=== PATIENT | female | born 1985 | race Two or more races ===

== ENCOUNTER 2021-04-10 00:45 | Observation (INO) | payer MEDICAID, OTHER ==
[~2021-04-10] VITALS: Ht 160 cm; Wt 63.0 kg
[2021-04-10] MEDS ORDERED: CEPH-322 PO ×2 (04:33→04:36)
[2021-04-10] MEDS ORDERED: PREN-96 PO (04:38)
== END 2021-04-10 04:48 | disposition home or self-care (01) ==
LOC: LDRP 00:45
PROVIDERS: ADMIT Obstetrics & Gynecology; ATTEND Obstetrics & Gynecology
DX: O62.9 Abnormality of forces of labor, unspecified (principal); Z3A.33 33 weeks gestation of pregnancy; Z79.899 Other long term (current) drug therapy; W18.2XXA Fall in (into) shower or empty bathtub, initial encounter; Y93.89 Activity, other specified; Y92.89 Other specified places as the place of occurrence of the external cause; Y99.8 Other external cause status
CPT/HCPCS: 59025; 76805; 76818; 81002; 82962; G0378

== ENCOUNTER 2021-05-21 07:05 | Inpatient (IN) | payer MEDICAID ==
[~2021-05-21] VITALS: Ht 160 cm; Wt 71.7 kg
[~2021-05-21 07:05] MED LIST: CEPH-322 PO; PREN-96 PO
[2021-05-21] MEDS ORDERED: BUTORPHANOL TARTRATE 2 MG/1 ML VIAL IV PRN ×2 (07:45)
[2021-05-21] MEDS ORDERED: WITCH HAZEL-GLYCERIN PAD TOP PRN (07:45)
[2021-05-21] MEDS ORDERED: ONDANSETRON ODT 4 MG TAB PO PRN (07:45)
[2021-05-21] MEDS ORDERED: PROMETHAZINE HCL 25 MG/ML 1ML IV PRN (07:45)
[2021-05-21] MEDS ORDERED: ACETAMINOPHEN 325 MG TAB PO PRN (07:45)
[2021-05-21] MEDS ORDERED: PHISODERM TOP SOLN 240ML BTL TOP PRN (07:45)
[2021-05-21] MEDS ORDERED: CARBOPROST TROMETHAMINE 250 MCG/1ML VIAL IM ONE (07:45)
[2021-05-21] MEDS ORDERED: miSOPROStol 100 mcg TAB SL PRN (07:45)
[2021-05-21] MEDS ORDERED: miSOPROStol 100 mcg TAB PR PRN (07:45)
[2021-05-21] MEDS ORDERED: DERMOPLAST 60ML BOTTLE TOP PRN (07:45)
[2021-05-21] MEDS ORDERED: LACT. RINGERS/OXYTOCIN 20UNITS 500 ML IV ONE ×2 (07:45→09:45)
[2021-05-21] MEDS ORDERED: LACTATED RINGER'S 1,000 ML IV SCH (07:45)
[2021-05-21] MEDS ORDERED: METHYLERGONOVINE MALEATE 0.2 MG/ML AMP IM ONE (07:45)
[2021-05-21] MEDS ORDERED: PENICILLIN G POT 5MIL/D5 50ML 50 ML IV ONE (07:45)
[2021-05-21] MEDS ORDERED: PREN-96 PO (07:53)
[2021-05-21] MEDS ORDERED: LACT. RINGERS/OXYTOCIN 20UNITS 1,000 ML IV SCH (08:15)
[2021-05-21 08:29] LABS: Basophils # (auto) 0.1 10 ^3/uL (0-0.2); Basophils % (auto) 0.6 % (0.0-2.0); Eosinophils # (auto) 0 10 ^3/uL (0-0.8); Eosinophils % (auto) 0.4 % (0.0-7.0); Hematocrit 38.4 % (36.0-46.0); Hemoglobin 12.8 g/dL (12.2-16.2); Lymphocytes # (auto) 1.8 10 ^3/uL (0.4-5.4); Lymphocytes % (auto) 13.9 % (10.0-50.0); Mean Corpuscular Hemoglobin 27.4 pg (28.0-32.0); Mean Corpuscular Hgb Conc. 33.3 g/dL (32.0-36.0); Mean Corpuscular Volume 82.3 fL (80.0-100.0); Monocytes # (auto) 0.7 10 ^3/uL (0-1.3); Monocytes % (auto) 5.6 % (0.0-12.0); Neutrophils # (auto) 10.2 10 ^3/uL (1.6-8.6); Neutrophils % (auto) 79.5 % (37.0-80.0); Red Blood Cells 4.67 10^6/uL (4.0-5.20); Red Cell Distribution Width 15.2 % (11.8-14.3); White Blood Cell 12.9 10^3/uL (4.4-10.8)
[2021-05-21] MEDS ORDERED: LIDOCAINE 2%HCL (LOCAL ANESTH.) INJ 20ML MDV ONE (08:35)
[2021-05-21 08:42] LABS: Albumin 2.6 g/dL (3.4-5.0); Calcium 8.2 mg/dL (8.5-10.1); Potassium 4.1 mmol/L (3.5-5.1)
[2021-05-21 08:46] LABS: BUN/Creatinine Ratio 16.1; Bilirubin, Total 0.3 mg/dL (0.2-1.0); Total Protein 6.3 g/dL (6.4-8.2)
[2021-05-21] MEDS: LIDOCAINE 2%HCL (LOCAL ANESTH.) INJ 20ML MDV IJ PRN ×2 (08:46→08:48)
[2021-05-21 08:49] LABS: INR 0.88 (0.9-1.15); Partial Thromboplastin Time 26.6 sec (23.6-33.0)
[2021-05-21] MEDS ORDERED: LIDOCAINE 2%HCL (LOCAL ANESTH.) INJ 20ML MDV IJ PRN (09:15)
[2021-05-21 09:17] LABS: Urine Bacteria NONE SEEN /hpf (None Seen); Urine Blood 1+ /uL (Negative); Urine Specific Gravity 1.019 (1.001-1.035); Urine WBC 19 /hpf (0 - 5)
[2021-05-21 09:24] LABS: Alcohol, Urine < 3.0 mg/dL (0-10); Amphetamine Screen, Urine NEGATIVE (NEGATIVE); Barbiturate Scree,Urine NEGATIVE (NEGATIVE); Benzodiazephine Screen, Urine NEGATIVE (NEGATIVE); Cannabinoid Screen, Urine NEGATIVE (NEGATIVE); Cocaine Screen, Urine NEGATIVE (NEGATIVE); Opiate Scree,Urine NEGATIVE (NEGATIVE); Phencyclidine Screen, Urine NEGATIVE (NEGATIVE)
[2021-05-21] MEDS: IBUPROFEN 600 MG TAB PO PRN (09:38)
[2021-05-21] MEDS ORDERED: PENICILLIN G POTASSIUM 2,500,000 UNITS in D5W 5% 50 ML IV SCH (11:45)
[2021-05-21 11:47] VITALS: BP 108/63
[2021-05-21 15:00] VITALS: BP 110/63
[2021-05-21 19:00] VITALS: BP 101/58
[2021-05-21 23:00] VITALS: BP 98/56
[2021-05-22 03:00] VITALS: BP 120/72
[2021-05-22 07:00] VITALS: BP 114/75
[2021-05-22 07:06] LABS: RPR Non Reactive (Non Reactive)
[2021-05-22] MEDS: IBUPROFEN 600 MG TAB PO PRN (07:39)
[2021-05-22 10:30] VITALS: BP 108/64
== END 2021-05-22 11:00 | disposition home or self-care (01) | DRG 560 ==
LOC: LDRP 07:05 → OBSVTOIN 07:20 → LDRP 10:00
PROVIDERS: ADMIT Obstetrics & Gynecology; ATTEND Obstetrics & Gynecology
PROC: 10E0XZZ Delivery of Products of Conception, External Approach (ICD-10-PCS; principal; 2021-05-21)
PROC: 0KQM0ZZ Repair Perineum Muscle, Open Approach (ICD-10-PCS; 2021-05-21)
DX: O99.824 Streptococcus B carrier state complicating childbirth (principal); Z37.0 Single live birth; O42.90 Premature rupture of membranes, unspecified as to length of time between rupture and onset of labor, unspecified weeks of gestation; Z20.822 Contact with and (suspected) exposure to COVID-19; O70.1 Second degree perineal laceration during delivery; Z3A.39 39 weeks gestation of pregnancy
CPT/HCPCS: 36415; 59025; 59409; 80053; 80307; 81001; 85025; 85610; 85730; 86592; 86850; 86900; 86901; 87426; 94760; 96360; 96361; 96365; 96366; 96372; G0378; J2540; J2590; J7060

== ENCOUNTER 2023-11-27 23:54 | Emergency (ER) | payer MEDICAID, OTHER ==
[~2023-11-27] VITALS: Ht 157.5 cm; Wt 71.0 kg
[~2023-11-27 23:54] MED LIST changes: -CEPH-322 PO
[2023-11-28 00:12] VITALS: BP 123/91; PULSE 88; RESP 22; O2SAT 100
[2023-11-28 02:07] LABS: Urine Bacteria FEW /hpf (None Seen); Urine Blood 3+ /uL (Negative); Urine Clarity Clear (Clear); Urine Color Light-Yellow (Yellow); Urine Hyaline Cast FEW /lpf (0 - 2); Urine Mucus FEW (None Seen); Urine Protein, UAD TRACE (Negative); Urine Specific Gravity 1.024 (1.001-1.035); Urine Urobilinogen Normal (Negative); Urine WBC 5 /hpf (0 - 5)
== END 2023-11-28 02:40 | disposition left against medical advice (07) ==
LOC: ER 11-28
DX: M79.18 Myalgia, other site (principal); R51.9 Headache, unspecified; M79.602 Pain in left arm; M79.601 Pain in right arm; M54.2 Cervicalgia; Z53.21 Procedure and treatment not carried out due to patient leaving prior to being seen by health care provider
CPT/HCPCS: 81001

== ENCOUNTER 2025-01-05 03:33 | Inpatient (IN) | payer MEDICAID ==
[~2025-01-05] VITALS: Ht 152.4 cm; Wt 72.6 kg
[2025-01-05] MEDS: LACTATED RINGER'S 1,000 ML IV SCH (03:45)
[2025-01-05] MEDS: OXYTOCIN 10UNIT/ML 1ML VIAL ONE (03:46)
[2025-01-05] MEDS: LACT. RINGERS/OXYTOCIN 20UNITS 1,000 ML IV ONE (03:46)
[2025-01-05] MEDS: METHYLERGONOVINE MALEATE 0.2 MG/ML AMP IM ONE ×2 (03:46→04:00)
[2025-01-05] MEDS: CARBOPROST TROMETHAMINE 250 MCG/1ML VIAL IM ONE (04:00)
[2025-01-05] MEDS: LIDOCAINE 2%HCL (LOCAL ANESTH.) INJ 20ML MDV ONE (04:05)
[2025-01-05] MEDS: fentaNYL CITRATE 100 MCG/2 ML VL IV ONE (04:15)
[2025-01-05] MEDS ORDERED: ONDANSETRON ODT 4 MG TAB PO PRN (04:30)
[2025-01-05] MEDS ORDERED: LIDOCAINE 2%HCL (LOCAL ANESTH.) INJ 20ML MDV IJ PRN (04:30)
[2025-01-05] MEDS: WITCH HAZEL-GLYCERIN PAD TOP PRN (04:37)
[2025-01-05] MEDS: DERMOPLAST 60ML BOTTLE TOP PRN (04:37)
[2025-01-05] MEDS: PHISODERM TOP SOLN 240ML BTL TOP PRN (04:37)
[2025-01-05] MEDS: LACT. RINGERS/OXYTOCIN 20UNITS 500 ML IV ONE ×2 (04:38→04:39)
[2025-01-05] MEDS: IBUPROFEN 600 MG TAB PO PRN (04:50)
--- NOTE | 2025-01-05 05:00 | DVHHP2 ---
OB CC & HPI Date Date of Admission: Jan 05, 2025 Patient Identification: : 5 Para: 4 EDC: Jan 10, 2025 EGA: 39w2d Chief Complaints: Reason for admission: active labor History of Present Complaints Elma Villalobos is a 39 year old with IUP at 39w2d presenting to the place in active labor. Patient states her contractions started 2 hours ago and her water has not broken. Patient pushing spontaneously with contractions and stating that she "needs to push" Denies any complications with . No history of BP issues or asthma. Past Medical History Cardiac: No pertinent Hx Pulmonary: No pertinent Hx Central Nervous System: No pertinent Hx GI: No pertinent Hx Hemotology/Oncology: No pertinent Hx Hepatobiliary: No pertinent Hx Psychiatric: No pertinent Hx Musculoskeletal: No pertinent Hx Rheumotologic: No pertinent Hx Infectious Disease: No peritnent Hx ENT: No pertinent Hx Renal/: No pertinent Hx Endocrine: No pertinent Hx Dermatology: No pertinent Hx Past Surgical History: No pertinent Hx OB History OB History Care: Good Care (stopped going to visits at 37 weeks, but kept all other appointments) Ultrasounds: Normal mid trimester US (per patient) Obstetrical Complications: None Medical Complications: None Allergies: Coded Allergies: NO KNOWN ALLERGIES (Unverified , 04/10/21) Home Meds Reported Medications Vit W/ Ferrous Fumara ( One Daily) Daily Tab, 1 TAB PO DAILY, #90 TAB 3 Refills 05/21/21 Current Medications Current Medications Medications (Trade) Dose Ordered Sig/Swetha Route PRN Reason Start Time Stop Time Status Last Admin Lactated Ringer's 1,000 ml @ 125 mls/hr Q8H IV 01/05/25 03:45 Huma Godwin (Tucks) 1 pad PRN PRN TOP PERINEAL AREA DISCOMFORT 01/05/25 03:45 01/05/25 04:37 Sodium Lauryl Sulfate (Phisoderm) 240 ml PRN PRN TOP PERINEAL AREA DISCOMFORT 01/05/25 03:45 01/05/25 04:37 Benzocaine (Dermoplast) 1 applic PRN PRN TOP PERINEAL AREA DISCOMFORT 01/05/25 03:45 01/05/25 04:37 Ibuprofen (Motrin Tablet) 600 mg Q6HP PRN PO MODERATE PAIN (4-6 PAIN SCALE) 01/05/25 04:30 01/05/25 04:50 Acetaminophen (Tylenol Tablet) 650 mg Q4HP PRN PO MILD PAIN (1-3 PAIN SCALE) 01/05/25 04:30 Ondansetron HCl (Zofran Po) 4 mg Q4HPRN PRN PO NAUSEA / VOMITING 01/05/25 04:30 Docusate Sodium (Colace Capsule) 200 mg HS PO 01/05/25 22:00 Lidocaine HCl (Xylocaine) 20 ml ONCE PRN IJ PERINEAL AREA DISCOMFORT 01/05/25 04:30 Family & Social History Family/Social History Blood Type: O+ Rubella: immune RPR/VDRL: Negative GBS Status: Unknown HBsAG: Negative Review of Systems Constitutional: No symptom reported Ears, Nose, & Throat: No symptom reported Eyes: No symptom reported Pulmonary/Respiratory: No symptom reported Cardiovascular: No symptom reported Gastrointestinal: No symptom reported Genitourinary: No symptom reported Musculoskeletal: No symptom reported Skin: No symptom reported Psychiatric: No symptom reported Endocrine: No symptom reported Hemotologic/Lymphatic: No symptom reported OB Admission Exam Physical Exam Vitals: 0343: BP: 113/81 HR: 79 SpO2: 98 T: 97.7 RR: 19 Heart: Rhythm Normal Lungs: Clear Abdomen: Gravid Extremities: Normal Reflexes: Normal Cervical Dilatation: 8cm Membranes: Intact Heart Rate: 120's Accelerations: Accelerations Present Decelerations: Variable Decelerations Short Term Variability: Present Primary Special Educator Variability: Average (6-25) Contractions on Admission: < 5 Minutes Apart Date/Time Contractions Began: 01/05/25 @ 0130 Intensity: Firm OB Plan Plan Admitting Diagnosis: LABOR Plan: Expectant Management Other Plan: ASSESSMENT: -39 yo , IUP at 39w2d -Active labor -Category 1 Tracing -GBS unknown. Negative in all other pregnancies, per patient PLAN: -Plan of care discussed with Patient -Consent for possible blood transfusion obtained. -All questions and concerns answered. -Admit to Place for Labor and Delivery -Routine L&D Admission orders -EFM and vitals per policy. -Anticipate precipitous spontaneous vaginal delivery Visit Coding OBGYN Date of Service: Jan 05, 2025 Billing Provider: ALICE BRIGGS CNM [employer] Common Visit Codes: [id number] OBS CARE (HIGH) [employer] Procedure Codes: 00630-60- NON-STRESS TEST ALICE BRIGGS [facility] Jan 05, 2025 05:00
--- NOTE | 2025-01-05 05:04 | LDN2 ---
Labor and Delivery Note Date 01/05/25 Age 39 5 Para 4->5 EDC 01/10/2025 EGA 39w2d Diagnosis Vaginal Delivery: VTX Vacuum Assisted: No Placenta: Spontaneous (Franchesca) Sex: Male Amniotic Fluid: Clear Episiotomy: No Extension: Yes (2nd degree perineal laceration) Repaired with 3-[address]-1 EBL 50 in drape Labs Laboratory Tests 01/05/25 04:32: Blood Bank 05/21/21 08:01: Blood Type O POSITIVE Comments/Significant Med Tisha At 0352 this 39yo now delivered a viable male infant by w/ APGARS _/_. MARGARITA. placed skin to skin on pts abdomen r/t short cord length. Cord clamped and cut after 60 second. Cord blood sent. Intact 3-vessel cord and intact placenta (Franchesca), delivered spontaneously Pitocin IV bolus started. Placenta sent to pathology. Local lidocaine placed in vagina and perineum Cervix inspected and intact. Second degree perineal laceration present which was repaired with 3-0 vicryl suture in the usual fashion. Fundus at U, firm, midline, and light lochia. Straight catheter for 100 mL of clear urine. QBL 50mL in drape. VSS. Count correct x2. Patient to care and baby to couplet care, both stable. Visit Coding OBGYN Date of Service: Jan 05, 2025 Billing Provider: ALICE BRIGGS CNM [employer] Common Visit Codes: [id number] INP/OBS CARE (HIGH) [employer] Procedure Codes: 33397-[id number] DELIVERY ONLY ALICE BRIGGS CNM Jan 05, 2025 05:04
[2025-01-05 05:07] LABS: Hematocrit 40.5 % (36.0-46.0); Hemoglobin 13.8 g/dL (12.2-16.2); Mean Corpuscular Hemoglobin 28.6 pg (28.0-32.0); Mean Corpuscular Volume 83.9 fL (80.0-100.0); Nucleated Red Blood Cells % 0.0 %
[2025-01-05 05:15] LABS: Urine Protein, UAD Negative (Negative)
[2025-01-05 05:18] LABS: Amphetamine Screen, Urine Neg (NEGATIVE); Barbiturate Scree,Urine Neg (NEGATIVE); Benzodiazephine Screen, Urine Neg (NEGATIVE); Cannabinoid Screen, Urine Neg (NEGATIVE); Cocaine Screen, Urine Neg (NEGATIVE); Opiate Scree,Urine Neg (NEGATIVE); Phencyclidine Screen, Urine Neg (NEGATIVE)
[2025-01-05 05:19] LABS: Albumin 3.8 g/dL (3.2-4.8); Anion Gap 11 (5-15); BUN/Creatinine Ratio 7.8 (10.0-20.0); Carbon Dioxide 22 mmol/L (20-31); Chloride 105 mmol/L (98-107); Glucose 78 mg/dL (74-106); Potassium 4.0 mmol/L (3.5-5.1); Sodium 138 mmol/L (136-145); Total Protein 6.3 g/dL (5.7-8.2); Uric Acid 4.7 mg/dL (3.1-7.8)
[2025-01-05 05:20] LABS: Bilirubin, Total 0.4 mg/dL (0.2-1.0)
[2025-01-05 05:22] LABS: Alanine Aminotransferase < 9 U/L (7-40); Alkaline Phosphatase 167 U/L (46-116); Blood Urea Nitrogen 5 mg/dL (9-23); Calcium 8.6 mg/dL (8.7-10.4)
[2025-01-05 06:59] LABS: Fibrinogen 465.0 mg/dL (177-375); INR 0.89 (0.9-1.15); Partial Thromboplastin Time 27.4 SEC (24.5-34.5); Prothrombin Time 9.5 sec (9.3-11.8)
[2025-01-05 07:00] VITALS: BP 113/59; PULSE 75; RESP 16; TEMP 98.6; O2SAT 96
[2025-01-05 11:19] VITALS: BP 113/51; PULSE 60; RESP 17; TEMP 98; O2SAT 96
[2025-01-05] MEDS: ACETAMINOPHEN 325 MG TAB PO PRN (11:19)
[2025-01-05 15:02] VITALS: BP 122/66; PULSE 74; RESP 16; TEMP 97.8; O2SAT 95
[2025-01-05 18:30] VITALS: BP 104/61; PULSE 79; RESP 16; TEMP 98.4; O2SAT 99
[2025-01-05] MEDS: DOCUSATE SOD 100 MG CAP PO SCH (22:51)
[2025-01-05 23:00] VITALS: BP 136/74; PULSE 58; RESP 17; TEMP 98; O2SAT 99
[2025-01-05 23:01] VITALS: BP 136/74; PULSE 58; RESP 16; TEMP 98; O2SAT 99
[2025-01-06 03:30] VITALS: BP 127/75; PULSE 63; RESP 18; TEMP 98.2; O2SAT 99
--- NOTE | 2025-01-06 06:08 | DVHPN2 ---
Progress Note Date Seen: Jan 06, 2025 Subjective S: Lochia minimal Tolerating regular diet well. Ambulating and voiding well w/o feeling lightheaded or dizzy. Passing flatus but no BM yet. Breast feeding. Contraceptive plan: Desires and requests to be discharged home today vital signs Vital Sign Date Time Temp Pulse Resp B/P (MAP) Pulse Ox O2 Delivery O2 Flow Rate FiO2 01/06/25 03:30 98.2 63 18 127/75 (92) 99 98.2 01/05/25 18:30 Room Air Total Intake and Output 01/05/25 01/05/25 01/06/25 15:00 23:00 07:00 Output Total 1000 ml 500 ml Balance -1000 ml -500 ml medications Current Medications Medications Dose Ordered Sig/Swetha Route Start Time Stop Time Status Last Admin Dose Admin Lactated Ringer's 1,000 ml @ 125 mls/hr Q8H IV 01/05/25 03:45 Witch Citlali 1 pad PRN PRN TOP 01/05/25 03:45 01/05/25 04:37 1 PAD Sodium Lauryl Sulfate 240 ml PRN PRN TOP 01/05/25 03:45 01/05/25 04:37 240 ML Benzocaine 1 applic PRN PRN TOP 01/05/25 03:45 01/05/25 04:37 1 APPLIC Ibuprofen 600 mg Q6HP PRN PO 01/05/25 04:30 01/06/25 03:30 600 MG Acetaminophen 650 mg Q4HP PRN PO 01/05/25 04:30 01/06/25 02:03 650 MG Ondansetron HCl 4 mg Q4HPRN PRN PO 01/05/25 04:30 Docusate Sodium 200 mg HS PO 01/05/25 22:00 01/05/25 22:51 200 MG Lidocaine HCl 20 ml ONCE PRN IJ 01/05/25 04:30 laboratory and microbiology Laboratory Tests 01/05/25 04:32 Test 01/05/25 04:32 Range/Units Serum Glucose 78 74-106 mg/dL Objective A&O x3 NAD. Afebrile, VSS Chest: heart and lung sounds normal. Breasts: Nipples intact w/o cracks or soreness Abdomen: normal BS, soft, non-tender, no rebound or guarding, fundus firm @ U- 1, lochia minimal Perineum:- no edema, or erythema, Extremities: no edema or tenderness Lochia - minimal Assessment/Plan A/P 39 yo now ppd#_ s/p doing well. Blood Type: O Rh: Positive Breast feeding Rubella Immune Pain control with oral medications Bowel regimen: Increase fluid intake and fiber in diet, Laxative PRN PP BCM Plan: Condom Discharge plan: May discharge home later today if condition remains stable Plan discussed with: Patient Visit Coding OBGYN Date of Service: Jan 06, 2025 Billing Provider: IRMA CAT CNM [employer] Common Visit Codes: [id number] INP/OBS CARE(HIGH) IRMA CAT CNM Jan 06, 2025 06:08
--- NOTE | 2025-01-06 06:19 | DVHDS2 ---
Discharge Summary Date of Admission Jan 05, 2025 at 03:33 Date of Discharge: Jan 06, 2025 Admitting Diagnosis IUP at 39w 2d Active Labor Labs/Diagnostic Data: Laboratory Results Test 01/05/25 05:28 01/05/25 04:32 01/05/25 04:25 White Blood Count 11.8 10^3/uL (4.4-10.8) Red Blood Count 4.83 10^6/uL (4.0-5.20) Hemoglobin 13.8 g/dL (12.2-16.2) Hematocrit 40.5 % (36.0-46.0) Mean Corpuscular Volume 83.9 fL (80.0-100.0) Mean Corpuscular Hemoglobin 28.6 pg (28.0-32.0) Mean Corpuscular Hemoglobin Concent 34.1 g/dL (32.0-36.0) Red Cell Distribution Width 15.5 % (11.8-14.3) Platelet Count 270 10^3/uL (140-450) Mean Platelet Volume 7.6 fL (6.9-10.8) Neutrophils (%) (Auto) 80.8 % (37.0-80.0) Lymphocytes (%) (Auto) 12.8 % (10.0-50.0) Monocytes (%) (Auto) 5.6 % (0.0-12.0) Eosinophils (%) (Auto) 0.5 % (0.0-7.0) Basophils (%) (Auto) 0.3 % (0.0-2.0) Neutrophils # (Auto) 9.5 10 ^3/uL (1.6-8.6) Lymphocytes # (Auto) 1.5 10 ^3/uL (0.4-5.4) Monocytes # (Auto) 0.7 10 ^3/uL (0-1.3) Eosinophils # (Auto) 0.1 10 ^3/uL (0-0.8) Basophils # (Auto) 0 10 ^3/uL (0-0.2) Nucleated Red Blood Cells 0.0 % Prothrombin Time 9.5 sec (9.3-11.8) Prothrombin Time INR 0.89 (0.9-1.15) Activated Partial Thromboplast Time 27.4 SEC (24.5-34.5) Fibrinogen 465 mg/dL (177-375) Sodium Level 138 mmol/L (136-145) Potassium Level 4.0 mmol/L (3.5-5.1) Chloride Level 105 mmol/L (98-107) Carbon Dioxide Level 22 mmol/L (20-31) Anion Gap 11 (5-15) Blood Urea Nitrogen 5 mg/dL (9-23) Creatinine 0.64 mg/dL (0.550-1.02) Glomerular Filtration Rate Calc 117 mL/min (>90) BUN/Creatinine Ratio 7.8 (10.0-20.0) Serum Glucose 78 mg/dL (74-106) Uric Acid 4.7 mg/dL (3.1-7.8) Calcium Level 8.6 mg/dL (8.7-10.4) Total Bilirubin 0.4 mg/dL (0.2-1.0) Aspartate Amino Transferase (AST) 14 U/L (13-40) Alanine Aminotransferase (ALT) < 9 U/L (7-40) Alkaline Phosphatase 167 U/L (46-116) Total Protein 6.3 g/dL (5.7-8.2) Albumin 3.8 g/dL (3.2-4.8) Hepatitis B Surface Antigen Negative (Negative) HIV (1&2) Antibody Negative (Negative) Rubella Antibody Positive Urine Color Yellow (Yellow) Urine Clarity Clear (Clear) Urine pH 5.5 (5.0-9.0) Urine Specific [place] 1.018 (1.001-1.035) Urine Protein Negative (Negative) Urine Ketones Negative (Negative) Urine Blood Negative /uL (Negative) Urine Nitrite Negative (Negative) Urine Bilirubin Negative (Negative) Urine Urobilinogen Normal mg/dL (Negative) Urine Leukocyte Esterase Negative /uL (Negative) Urine RBC None seen /hpf (0 - 4) Urine Microscopic WBC < 1 /HPF (0-5) Urine Squamous Epithelial Cells None seen /hpf (<5) Urine Bacteria None seen /hpf (None Seen) Urine Mucus Few (None Seen) Urine Glucose Normal mg/dL (Normal) Urine Opiates Screen Neg (NEGATIVE) Urine Fentanyl Screen Neg (NEGATIVE) Urine Barbiturates Screen Neg (NEGATIVE) Urine Phencyclidine Screen Neg (NEGATIVE) Urine Amphetamines Screen Neg (NEGATIVE) Urine Benzodiazepines Screen Neg (NEGATIVE) Urine Cocaine Screen Neg (NEGATIVE) Urine Cannabinoids Screen Neg (NEGATIVE) Other Laboratory Tests 8/15/25 04:32 Brief Hx & Hospital Course: Admitted on 01/05/25 at 39w 2d EGA in active labor. She rapidly progressed to 2nd stage of labor and had a over a second degree perineal laceration. ( See Delivery Note for details) Normal course; meeting milestones w/o any problem or complications. Condition at Discharge: Good Final Diagnosis/Problems List Term - Delivered Day 1; s/p Discharge Disposition: Home Discharge Instruct/Medications Diet: Regular Diet comment: Routine regular diet rich in fiber, protein, iron and vitamin C with adequate fluid intake. Activity: No Restrictions, As Tolerated Activity comment: Unrestricted. Advance as tolerated. Balance activities with rest periods No heavy lifting, pushing or straining. Pelvic rest x 6weeks Follow Up/Referral: self care instructions given. emergency signs and symptoms including but not limited to pre-eclampsia precautions and signs of infection, PPH & of PPD reviewed with patient. Follow up with OB Provider in 1 week Medications: Ibuprofen 600mg every 6 hours as needed for pain. Continue Vitamin with iron Scheduled Vit W/ Ferrous Fumara ( One Daily), 1 TAB PO DAILY, (Reported) 25 Discharge Statement: self care instructions given. emergency signs and symptoms including but not limited to pre-eclampsia precautions and signs of infection, PPH & of PPD reviewed with patient. Follow up with OB Provider in 1 week "Patient was advised to return to the ER or call 911 if any headaches, dizziness, shortness of breath, chest pain, abdominal pain, bleeding, fevers, or worsening of medical condition. Patient was counseled about treatment plan, medications, possible side effects, patientverbalized understanding. All questions were answered to the best of my ability. This discharge took greater then 30 minutes in planning, reviewing documentation, counseling the patient, and discussing with other team members." ASSESSMENT ASSESSMENT Hospital Course Admitted on 01/05/25 at 39w 2d EGA in active labor. She rapidly progressed to 2nd stage of labor and had a over a second degree perineal laceration. ( See Delivery Note for details) Normal course; meeting milestones w/o any problem or complications. Assessment Day #1; s/p Term - Delivered Visit Coding OBGYN Date of Service: Jan 06, 2025 Billing Provider: IRMA CAT CNM MEDICAL STAFF COORDINATOR Common Visit Codes: [id number] DISCH DAY <30MIN IRMA CAT CNM Jan 06, 2025 06:19
[2025-01-06 10:06] LABS: Hematocrit 40.2 % (36.0-46.0); Hemoglobin 13.6 g/dL (12.2-16.2); Mean Corpuscular Hemoglobin 28.6 pg (28.0-32.0); Mean Corpuscular Volume 84.6 fL (80.0-100.0); Nucleated Red Blood Cells % 0.1 %
[2025-01-07 01:06] LABS: Chlamydia Trachomatis, NAA Negative (Negative); Neisseria gonorrhoeae, NAA Negative (Negative)
== END 2025-01-06 10:50 | disposition home or self-care (01) | DRG 560 ==
LOC: LDRP 03:33
PROVIDERS: ADMIT Obstetrics & Gynecology; ATTEND Obstetrics & Gynecology
PROC: 0KQM0ZZ Repair Perineum Muscle, Open Approach (ICD-10-PCS; principal; 2025-01-05)
PROC: 10E0XZZ Delivery of Products of Conception, External Approach (ICD-10-PCS; 2025-01-05)
DX: O70.1 Second degree perineal laceration during delivery (principal); Z37.0 Single live birth; Z3A.39 39 weeks gestation of pregnancy
CPT/HCPCS: 36415; 59025; 59409; 80053; 80307; 81001; 81002; 84550; 85025; 85384; 85610; 85730; 86703; 86762; 86850; 86900; 86901; 87340; 94760; 96360; 96361; 96365; 96366; G0378; J2590